=== PATIENT | female | born 1995 | race Caucasian/White ===

== ENCOUNTER 2019-06-04 14:26 | Emergency (ER) | payer OTHER ==
[~2019-06-04] VITALS: Ht 165.1 cm; Wt 98.4 kg
[2019-06-04 14:42] VITALS: Ht 165.1 cm; Wt 98.4 kg
[2019-06-04 16:22] LABS: BASOPHIL % 0.5 % (0-2); PLATELET COUNT 199 x10^3mcL (130-400); RED CELL DISTRIBUTION WIDTH 13.4 % (11.5-14.5)
[2019-06-04 16:26] LABS: CALCIUM 8.7 mg/dL (8.5-10.1); CARBON DIOXIDE 25.8 mmol/L (21-32); CHLORIDE SERUM 99 mmol/L (98-107); CREATININE SERUM 0.7 mg/dL (0.6-1.0); GFR1 > 60 mL/min; GLUCOSE SERUM 94 mg/dL (74-106); POTASSIUM SERUM 3.7 mmol/L (3.5-5.1); SODIUM SERUM 137 mmol/L (136-145)
[2019-06-04 16:31] LABS: ALKALINE PHOSPHATASE 65 U/L (46-116); ALT/SGPT 23 U/L (14-59); AST/SGOT 7 U/L (15-37); BILIRUBIN TOTAL 0.61 mg/dL (0.20-1.00); C REACTIVE PROTEIN 6.9 mg/dL (<=0.9)
[2019-06-04 16:46] LABS: TOTAL PROTEIN, SERUM 8.8 g/dL (6.4-8.2)
[2019-06-04 17:36] LABS: ERYTHROCYTE SED RATE 37 mm/hr (0-20)
[2019-06-04 18:10] VITALS: BP 135/82
== END 2019-06-04 18:10 | disposition home or self-care (01) ==
LOC: ED 14:26
PROVIDERS: Specialist
DX: K04.7 Periapical abscess without sinus (principal); L03.211 Cellulitis of face; Z90.89 Acquired absence of other organs
CPT/HCPCS: J1100; J1200; J2543; J3490; J7030